=== PATIENT | female | born 1930 | race Caucasian/White ===

== ENCOUNTER 2016-10-12 11:53 | Emergency (ER) | payer OTHER, MEDICAID ==
[~2016-10-12] VITALS: Ht 147.3 cm; Wt 52.7 kg
[~2016-10-12 11:53] MED LIST: ANTIVERT12.5 MG PO; BACLOFEN10 MG; CIPRO500 MG PO; COLACE100 MG PO; CYCLOBENZAPRINE5 MG PO; DONEPEZIL HYDROC5 M2 PO; ECO81 PO; FERROUS GLUCON300 MG PO; HYDROCHLOROTH12.5 M2 PO; IBUPROFEN400 MG PO; LAC PO; LOSARTAN POTASS25 M1 PO; LOSARTAN POTASS50 M1 PO; MOTRIN600 MG PO; NORCO1 TA2 PO; VITC PO
[2016-10-12 12:33] LABS: BASOPHIL % 1.1 % (0-2); PLATELET COUNT 243 x10^3mcL (130-400); RED CELL DISTRIBUTION WIDTH 14.3 % (11.5-14.5)
[2016-10-12 12:39] LABS: CALCIUM 9.1 mg/dL (8.5-10.1); CARBON DIOXIDE 24.7 mmol/L (21-32); CHLORIDE SERUM 108 mmol/L (98-107); CREATININE SERUM 0.8 mg/dL (0.6-1.0); GLUCOSE SERUM 89 mg/dL (74-106); POTASSIUM SERUM 4.2 mmol/L (3.5-5.1); SODIUM SERUM 141 mmol/L (136-145)
[2016-10-12 12:43] LABS: ALBUMIN 3.5 g/dL (3.4-5.0); ALKALINE PHOSPHATASE 115 U/L (46-116); ALT/SGPT 9 U/L (14-59); AST/SGOT 20 U/L (15-37); BILIRUBIN TOTAL 0.36 mg/dL (0.20-1.00); CHOLESTEROL 178 mg/dL (<200); HDL CHOLESTEROL 74 mg/dL (40-60); MAGNESIUM 1.9 mg/dL (1.8-2.4); TOTAL PROTEIN, SERUM 6.7 g/dL (6.4-8.2)
[2016-10-12 12:51] LABS: microscopic required? NO
[2016-10-12 12:57] LABS: urine erythrocyte NEGATIVE (NEGATIVE)
[2016-10-12 14:34] VITALS: BP 158/70
== END 2016-10-12 14:34 | disposition home or self-care (01) ==
LOC: ED 11:53
PROVIDERS: Emergency Medicine
DX: D64.9 Anemia, unspecified (principal); M25.511 Pain in right shoulder; I45.19 Other right bundle-branch block; I10 Essential (primary) hypertension; F32.9 Major depressive disorder, single episode, unspecified; M51.9 Unspecified thoracic, thoracolumbar and lumbosacral intervertebral disc disorder; Z90.710 Acquired absence of both cervix and uterus
CPT/HCPCS: 82962; 83880; J1100; J1885; J7040; J8597

== ENCOUNTER 2017-08-04 14:52 | Inpatient (IN) | payer OTHER, MEDICAID ==
[~2017-08-04] VITALS: Ht 142.2 cm; Wt 51.4 kg
[2017-08-04 16:06] LABS: BASOPHIL % 1.4 % (0-2); PLATELET COUNT 201 x10^3mcL (130-400); RED CELL DISTRIBUTION WIDTH 13.6 % (11.5-14.5)
[2017-08-04 16:07] LABS: CALCIUM 9.7 mg/dL (8.5-10.1); CARBON DIOXIDE 22.5 mmol/L (21-32); CHLORIDE SERUM 105 mmol/L (98-107); CREATININE SERUM 0.9 mg/dL (0.6-1.0); GLUCOSE SERUM 124 mg/dL (74-106); POTASSIUM SERUM 3.8 mmol/L (3.5-5.1); SODIUM SERUM 139 mmol/L (136-145)
[2017-08-04 16:13] LABS: ALKALINE PHOSPHATASE 105 U/L (46-116); ALT/SGPT 24 U/L (14-59); AST/SGOT 27 U/L (15-37); BILIRUBIN TOTAL 0.49 mg/dL (0.20-1.00); LIPASE 246 IU/L (73-393); TOTAL PROTEIN, SERUM 7.1 g/dL (6.4-8.2)
[2017-08-04 16:32] LABS: microscopic required? NO
[2017-08-04 16:46] LABS: urine erythrocyte NEGATIVE (NEGATIVE)
[2017-08-04 17:48] VITALS: BP 140/72
[2017-08-04 18:03] LABS: T3 TOTAL 0.93 ng/mL
[2017-08-04 18:07] LABS: FREE T4 1.28 ng/dL (0.76-1.46); FREE THYROXINE INDEX 3.6 ug/dL (1.4-4.5); T4(THYROXINE) 10.4 ug/dL (4.7-13.3)
[2017-08-04 18:21] LABS: MAGNESIUM 1.8 mg/dL (1.8-2.4); PHOSPHOROUS 2.5 mg/dL (2.5-4.9)
[2017-08-04 18:26] LABS: CHOLESTEROL/HDL RATIO 2.4
[2017-08-04 21:19] VITALS: BP 128/56
[2017-08-05 05:45] VITALS: BP 100/45
[2017-08-05 06:19] LABS: PLATELET COUNT 179 x10^3mcL (130-400); RED CELL DISTRIBUTION WIDTH 13.6 % (11.5-14.5)
[2017-08-05 06:37] LABS: CALCIUM 8.5 mg/dL (8.5-10.1); CARBON DIOXIDE 23.6 mmol/L (21-32); CHLORIDE SERUM 109 mmol/L (98-107); CREATININE SERUM 0.9 mg/dL (0.6-1.0); GLUCOSE SERUM 80 mg/dL (74-106); POTASSIUM SERUM 3.6 mmol/L (3.5-5.1); SODIUM SERUM 141 mmol/L (136-145)
[2017-08-05 09:00] VITALS: BP 128/52
[2017-08-05 11:48] VITALS: BP 128/52
[2017-08-05 14:00] VITALS: BP 138/57
[2017-08-05 16:34] VITALS: BP 131/53
== END 2017-08-05 17:11 | disposition home health service (06) | DRG 640 ==
LOC: ED 14:52 → DU 16:41
PROVIDERS: Emergency Medicine; Family Medicine
DX: E86.0 Dehydration (principal); N17.0 Acute kidney failure with tubular necrosis; R73.9 Hyperglycemia, unspecified; I51.7 Cardiomegaly; I10 Essential (primary) hypertension; D64.9 Anemia, unspecified; D63.8 Anemia in other chronic diseases classified elsewhere; F03.90 Unspecified dementia, unspecified severity, without behavioral disturbance, psychotic disturbance, mood disturbance, and anxiety; Z68.25 Body mass index [BMI] 25.0-25.9, adult
CPT/HCPCS: 83880; 84439; 87804; 97530-GP; J1200; J1885; J2405; J2550; J2765; J7030; Q0092

== ENCOUNTER 2017-12-22 01:58 | Emergency (ER) | payer OTHER, MEDICAID ==
[~2017-12-22] VITALS: Ht 144.8 cm; Wt 51.9 kg
[~2017-12-22 01:58] MED LIST changes: +BACTRIM DS1 TAB PO; +TYL325 PO
[2017-12-22 02:04] VITALS: Ht 144.8 cm; Wt 51.9 kg
[2017-12-22 04:14] VITALS: BP 139/79
== END 2017-12-22 04:14 | disposition home or self-care (01) ==
LOC: ED 01:58
DX: G89.29 Other chronic pain (principal); M25.511 Pain in right shoulder; F03.90 Unspecified dementia, unspecified severity, without behavioral disturbance, psychotic disturbance, mood disturbance, and anxiety; I10 Essential (primary) hypertension
CPT/HCPCS: J1885

== ENCOUNTER 2018-01-04 01:13 | Emergency (ER) | payer OTHER, MEDICAID ==
[~2018-01-04] VITALS: Ht 144.8 cm; Wt 52.6 kg
[2018-01-04 01:21] VITALS: Ht 144.8 cm; Wt 52.6 kg
[2018-01-04 06:39] VITALS: BP 125/64
== END 2018-01-04 06:39 | disposition home or self-care (01) ==
LOC: ED 01:13
DX: M19.011 Primary osteoarthritis, right shoulder (principal)
CPT/HCPCS: J1885; Q0092

== ENCOUNTER 2018-08-26 09:57 | Emergency (ER) | payer OTHER, MEDICAID ==
[~2018-08-26] VITALS: Ht 144.8 cm; Wt 52.2 kg
[2018-08-26 10:00] VITALS: Ht 144.8 cm; Wt 52.2 kg
[2018-08-26 12:10] VITALS: BP 178/73
[2018-08-26 12:25] LABS: CALCIUM 9.3 mg/dL (8.5-10.1); CARBON DIOXIDE 27.4 mmol/L (21-32); CHLORIDE SERUM 105 mmol/L (98-107); GLUCOSE SERUM 86 mg/dL (74-106); POTASSIUM SERUM 3.8 mmol/L (3.5-5.1); SODIUM SERUM 140 mmol/L (136-145)
[2018-08-26 12:28] LABS: PLATELET COUNT 176 x10^3mcL (130-400)
[2018-08-26 12:29] LABS: ALBUMIN 3.4 g/dL (3.4-5.0); ALKALINE PHOSPHATASE 107 U/L (46-116); ALT/SGPT 16 U/L (14-59); AST/SGOT 20 U/L (15-37); BILIRUBIN TOTAL 0.6 mg/dL (0.20-1.00); CHOLESTEROL 167 mg/dL (<200); LIPASE 192 IU/L (73-393); TOTAL PROTEIN, SERUM 7.1 g/dL (6.4-8.2); TRIGLYCERIDES 77 mg/dL (<150)
[2018-08-26 12:31] LABS: CHOLESTEROL/HDL RATIO 2.2; HDL CHOLESTEROL 75 mg/dL (40-60)
[2018-08-26 12:40] LABS: FREE T4 1.19 ng/dL (0.76-1.46); T4(THYROXINE) 8.2 ug/dL (4.7-13.3)
[2018-08-26 12:41] LABS: T3 TOTAL 0.97 ng/mL
[2018-08-26 12:57] LABS: RED CELL DISTRIBUTION WIDTH 16.2 % (11.5-14.5)
== END 2018-08-26 12:43 | disposition short-term general hospital (02) ==
LOC: ED 09:57
PROVIDERS: Specialist
DX: S06.5X0A Traumatic subdural hemorrhage without loss of consciousness, initial encounter (principal); S01.81XA Laceration without foreign body of other part of head, initial encounter; I10 Essential (primary) hypertension; F32.9 Major depressive disorder, single episode, unspecified; W01.0XXA Fall on same level from slipping, tripping and stumbling without subsequent striking against object, initial encounter; Y93.89 Activity, other specified; Y92.89 Other specified places as the place of occurrence of the external cause; Y99.8 Other external cause status
CPT/HCPCS: 83880; 84439; 90715; J2001; J7030; Q0092

== ENCOUNTER 2018-09-13 23:38 | Emergency (ER) | payer OTHER, MEDICAID ==
[~2018-09-13] VITALS: Ht 152.4 cm; Wt 47.6 kg
[2018-09-13 23:44] VITALS: Ht 152.4 cm; Wt 47.6 kg
[2018-09-14 00:15] LABS: BASOPHIL % 0.3 % (0-2); PLATELET COUNT 344 x10^3mcL (130-400)
[2018-09-14 00:24] LABS: RED CELL DISTRIBUTION WIDTH 14.6 % (11.5-14.5)
[2018-09-14 00:25] LABS: CALCIUM 8.3 mg/dL (8.5-10.1); CARBON DIOXIDE 26.9 mmol/L (21-32); CHLORIDE SERUM 98 mmol/L (98-107); CREATININE SERUM 0.9 mg/dL (0.6-1.0); GLUCOSE SERUM 99 mg/dL (74-106); POTASSIUM SERUM 3.6 mmol/L (3.5-5.1); SODIUM SERUM 132 mmol/L (136-145)
[2018-09-14 00:34] LABS: ALKALINE PHOSPHATASE 115 U/L (46-116); ALT/SGPT 17 U/L (14-59); AST/SGOT 18 U/L (15-37); BILIRUBIN TOTAL 0.4 mg/dL (0.20-1.00); TOTAL PROTEIN, SERUM 6.8 g/dL (6.4-8.2)
[2018-09-14 00:35] LABS: ALBUMIN 2.7 g/dL (3.4-5.0)
[2018-09-14 01:22] VITALS: BP 114/72
== END 2018-09-14 01:22 | disposition home or self-care (01) ==
LOC: ED 23:38
PROVIDERS: Emergency Medicine
DX: M54.6 Pain in thoracic spine (principal); S20.212A Contusion of left front wall of thorax, initial encounter; I10 Essential (primary) hypertension; F32.9 Major depressive disorder, single episode, unspecified; W18.09XA Striking against other object with subsequent fall, initial encounter; Y93.01 Activity, walking, marching and hiking; Y92.098 Other place in other non-institutional residence as the place of occurrence of the external cause; Y99.8 Other external cause status
CPT/HCPCS: 36415; J1885; Q0092

== ENCOUNTER 2018-10-07 09:29 | Emergency (ER) | payer OTHER, MEDICAID ==
[~2018-10-07] VITALS: Ht 160 cm; Wt 48.1 kg
[2018-10-07 09:35] VITALS: Ht 160 cm; Wt 48.1 kg
[2018-10-07 10:24] LABS: CALCIUM 8.8 mg/dL (8.5-10.1); CARBON DIOXIDE 23.8 mmol/L (21-32); CHLORIDE SERUM 104 mmol/L (98-107); CREATININE SERUM 0.8 mg/dL (0.6-1.0); GLUCOSE SERUM 90 mg/dL (74-106); POTASSIUM SERUM 4.1 mmol/L (3.5-5.1); SODIUM SERUM 136 mmol/L (136-145)
[2018-10-07 10:29] LABS: ALKALINE PHOSPHATASE 108 U/L (46-116); ALT/SGPT 10 U/L (14-59); AST/SGOT 16 U/L (15-37); BILIRUBIN TOTAL 0.3 mg/dL (0.20-1.00); TOTAL PROTEIN, SERUM 6.6 g/dL (6.4-8.2)
[2018-10-07 10:37] LABS: ALBUMIN 3.1 g/dL (3.4-5.0)
[2018-10-07 11:53] LABS: BASOPHIL % 0.6 % (0-2); PLATELET COUNT 238 x10^3mcL (130-400)
[2018-10-07 11:55] LABS: RED CELL DISTRIBUTION WIDTH 16.1 % (11.5-14.5)
[2018-10-07 13:33] VITALS: BP 103/48
== END 2018-10-07 13:33 | disposition left against medical advice (07) ==
LOC: ED 09:29
PROVIDERS: Emergency Medicine
DX: R07.89 Other chest pain (principal); I10 Essential (primary) hypertension; F03.90 Unspecified dementia, unspecified severity, without behavioral disturbance, psychotic disturbance, mood disturbance, and anxiety; F32.9 Major depressive disorder, single episode, unspecified
CPT/HCPCS: 36415; 83880; Q0092